=== PATIENT | male | born 1965 | race Caucasian/White ===

== ENCOUNTER → 2016-11-14 | Outpatient (CLI) | payer OTHER ==
[~2016-11-14] MED LIST: ACTOS 15MG TAB15 MG PO; BACTRIM DS 8001 TAB PO; CEPHALEXIN500 M1 PO; FOLIC ACID 11 MG/TA1 PO; HUMALOG; HUMULIN N 10100 U/ML SC; HUMULIN N 10100 U/ML SQ; INSULIN HUMA100 U/ML IJ; LORTAB 5/500 501 TAB PO; METFORMIN1000 MG PO; SIMVASTATIN1 POW; THIAMINE 1100 MG/TAB PO; VALIUM 10MG10 MG/TAB PO; ZOCOR
[2016-11-14 11:29] LABS: CALCIUM 9.4 mg/dL (8.4-10.2); CREATININE, serum 0.83 mg/dL (0.66-1.25); POTASSIUM 4.2 mmol/L (3.4-5.0)
== END ==
LOC: ZLAB.FHCC 11:06
DX: Z01.89 Encounter for other specified special examinations (principal)

== ENCOUNTER → 2016-12-12 | Outpatient (CLI) | payer OTHER ==
[2016-12-12 18:39] LABS: PSA-TOTAL 1.95 ng/mL (0-4)
[2016-12-12 18:57] LABS: MAGNESIUM 1.9 mg/dL (1.6-2.3)
== END ==
LOC: ZLAB.FHCC 13:29
DX: Z01.89 Encounter for other specified special examinations (principal)
CPT/HCPCS: G0103

== ENCOUNTER → 2016-12-25 | Outpatient (CLI) | payer OTHER | LOC: SUN.DIA 08:45 | DX: E11.65 Type 2 diabetes mellitus with hyperglycemia (principal); Z79.4 Long term (current) use of insulin; Z68.23 Body mass index [BMI] 23.0-23.9, adult; Z71.3 Dietary counseling and surveillance; I10 Essential (primary) hypertension ==

== ENCOUNTER → 2017-02-08 | Outpatient (CLI) | payer OTHER ==
[2017-02-08 17:56] LABS: CALCIUM 9.6 mg/dL (8.4-10.2); CREATININE, serum 0.76 mg/dL (0.66-1.25); MAGNESIUM 1.8 mg/dL (1.6-2.3); POTASSIUM 4.2 mmol/L (3.4-5.0)
== END ==
LOC: ZLAB.FHCC 17:46
DX: Z01.89 Encounter for other specified special examinations (principal)

== ENCOUNTER → 2017-02-08 | Outpatient (CLI) | payer OTHER | LOC: ZLAB.FHCC 14:30 | DX: Z53.9 Procedure and treatment not carried out, unspecified reason (principal) ==

== ENCOUNTER → 2017-06-25 | Outpatient (CLI) | payer OTHER | LOC: SUN.DIA 08:42 | DX: E11.9 Type 2 diabetes mellitus without complications (principal); Z79.4 Long term (current) use of insulin; I10 Essential (primary) hypertension; Z68.22 Body mass index [BMI] 22.0-22.9, adult; Z71.3 Dietary counseling and surveillance; F17.210 Nicotine dependence, cigarettes, uncomplicated | CPT/HCPCS: G0108 ==

== ENCOUNTER → 2017-09-24 | Outpatient (CLI) | payer SELFPAY ==
[2017-09-24 09:24] LABS: CALCIUM 9.5 mg/dL (8.4-10.2); CREATININE, serum 0.74 mg/dL (0.66-1.25); MAGNESIUM 1.7 mg/dL (1.6-2.3); POTASSIUM 4.2 mmol/L (3.4-5.0)
== END ==
LOC: COL.LAB 08:17
DX: E11.9 Type 2 diabetes mellitus without complications (principal)

== ENCOUNTER → 2018-05-15 | Outpatient (CLI) | payer OTHER | LOC: SUN.DIA 12-19 12:03 | DX: E11.9 Type 2 diabetes mellitus without complications (principal); Z79.4 Long term (current) use of insulin; I10 Essential (primary) hypertension; Z68.23 Body mass index [BMI] 23.0-23.9, adult; Z71.3 Dietary counseling and surveillance; F17.210 Nicotine dependence, cigarettes, uncomplicated | CPT/HCPCS: G0108 ==

== ENCOUNTER → 2018-10-08 | Outpatient (CLI) | payer SELFPAY ==
[2018-10-08 14:09] LABS: ALBUMIN 4.1 gm/dL (3.5-5.0); BILIRUBIN,TOTAL 0.7 mg/dL (0.0-1.0); CALCIUM 9.5 mg/dL (8.4-10.2); CHOLESTEROL RISK RATIO 2.7; CREATININE, serum 0.76 mg/dL (0.66-1.25); MAGNESIUM 1.6 mg/dL (1.6-2.3); POTASSIUM 3.3 mmol/L (3.4-5.0); TOTAL PROTEIN 7.3 gm/dL (6.4-8.2)
== END ==
LOC: ZLAB.FHCC 13:37
PROVIDERS: Family Medicine
DX: E11.9 Type 2 diabetes mellitus without complications (principal); I10 Essential (primary) hypertension

== ENCOUNTER → 2018-10-22 | Outpatient (CLI) | payer OTHER ==
[2018-10-22 15:57] LABS: CALCIUM 9.4 mg/dL (8.4-10.2); CREATININE, serum 0.72 mg/dL (0.66-1.25)
== END ==
LOC: ZLAB.FHCC 14:05
DX: E11.9 Type 2 diabetes mellitus without complications (principal); I10 Essential (primary) hypertension

== ENCOUNTER → 2018-11-11 | Outpatient (CLI) | payer OTHER | LOC: SUN.DIA 08:38 | DX: E10.9 Type 1 diabetes mellitus without complications (principal); Z79.4 Long term (current) use of insulin; I10 Essential (primary) hypertension; F17.210 Nicotine dependence, cigarettes, uncomplicated | CPT/HCPCS: G0108 ==

== ENCOUNTER → 2018-12-02 | Outpatient (CLI) | payer OTHER | LOC: COL.CARD 11-27 11:20 | DX: R03.0 Elevated blood-pressure reading, without diagnosis of hypertension (principal) ==

== ENCOUNTER → 2018-12-10 | Outpatient (CLI) | payer OTHER ==
[2018-12-10 12:17] LABS: CALCIUM 9.4 mg/dL (8.4-10.2); CREATININE, serum 0.69 mg/dL (0.66-1.25); POTASSIUM 3.4 mmol/L (3.4-5.0)
== END ==
LOC: ZLAB.FHCC 11:51
DX: I10 Essential (primary) hypertension (principal); E11.9 Type 2 diabetes mellitus without complications

== ENCOUNTER → 2018-12-23 | Outpatient (CLI) | payer OTHER | LOC: SUN.DIA 08:38 | DX: E10.9 Type 1 diabetes mellitus without complications (principal); Z79.4 Long term (current) use of insulin; I10 Essential (primary) hypertension; F17.210 Nicotine dependence, cigarettes, uncomplicated | CPT/HCPCS: G0108 ==

== ENCOUNTER → 2019-01-24 | Outpatient (CLI) | payer OTHER ==
[2019-01-24 14:00] LABS: CALCIUM 9.1 mg/dL (8.4-10.2); CREATININE, serum 0.62 mg/dL (0.66-1.25); MAGNESIUM 1.6 mg/dL (1.6-2.3)
[2019-01-24 14:56] LABS: CHOLESTEROL RISK RATIO 1.8
[2019-01-24 14:57] LABS: POTASSIUM 2.8 mmol/L (3.4-5.0)
== END ==
LOC: COL.LAB 13:21
PROVIDERS: Family Medicine
DX: Z01.89 Encounter for other specified special examinations (principal)

== ENCOUNTER → 2019-01-28 | Outpatient (CLI) | payer OTHER ==
[2019-01-28 13:57] LABS: CALCIUM 8.9 mg/dL (8.4-10.2); CREATININE, serum 0.57 mg/dL (0.66-1.25); POTASSIUM 4.1 mmol/L (3.4-5.0)
== END ==
LOC: COL.LAB 13:20
PROVIDERS: Family Medicine
DX: I10 Essential (primary) hypertension (principal); E11.9 Type 2 diabetes mellitus without complications; E87.6 Hypokalemia

== ENCOUNTER → 2019-02-05 | Outpatient (CLI) | payer OTHER ==
[2019-02-05 14:11] LABS: CALCIUM 9.1 mg/dL (8.4-10.2); CREATININE, serum 0.72 (0.66-1.25); POTASSIUM 4.5 mmol/L (3.4-5.0)
== END ==
LOC: COL.LAB 13:32
PROVIDERS: Family Medicine
DX: E11.9 Type 2 diabetes mellitus without complications (principal); I10 Essential (primary) hypertension

== ENCOUNTER → 2019-03-12 | Outpatient (CLI) | payer OTHER ==
[2019-03-12 14:14] LABS: POTASSIUM 4.4 mmol/L (3.4-5.0)
== END ==
LOC: COL.LAB 13:43
DX: Z01.89 Encounter for other specified special examinations (principal)

== ENCOUNTER → 2019-05-27 | Outpatient (CLI) | payer SELFPAY | LOC: DIA.ED 08:43 | DX: E10.9 Type 1 diabetes mellitus without complications (principal); E78.5 Hyperlipidemia, unspecified; I10 Essential (primary) hypertension; Z79.4 Long term (current) use of insulin | CPT/HCPCS: G0108 ==

== ENCOUNTER → 2019-12-15 | Outpatient (CLI) | payer OTHER | LOC: DIA.ED 08:48 | DX: E10.9 Type 1 diabetes mellitus without complications (principal); E78.5 Hyperlipidemia, unspecified; I10 Essential (primary) hypertension | CPT/HCPCS: G0108 ==

== ENCOUNTER → 2020-06-14 | Outpatient (CLI) | payer OTHER | LOC: DIA.ED 08:38 | DX: E10.9 Type 1 diabetes mellitus without complications (principal); I10 Essential (primary) hypertension; E78.5 Hyperlipidemia, unspecified | CPT/HCPCS: G0108 ==

== ENCOUNTER → 2020-12-23 | Outpatient (CLI) | payer SELFPAY | LOC: DIA.ED 12-20 10:23 | DX: E10.9 Type 1 diabetes mellitus without complications (principal); E78.5 Hyperlipidemia, unspecified; I10 Essential (primary) hypertension | CPT/HCPCS: G0108 ==